=== PATIENT | male | born 1990 | race Caucasian/White ===

== ENCOUNTER → 2017-01-19 | Outpatient (CLI) | payer OTHER ==
--- NOTE | 2017-01-20 11:56 | REP ---
Right ankle series: Four views. History: Crush injury to the ankle. Findings: Four views right ankle demonstrate anterolateral soft-tissue swelling. No fracture or subluxation is seen. Impression: No fracture noted. Signed by Adams Loya MD 01/20/2017 12:31 P
== END ==
LOC: M WUC 19:26
PROVIDERS: ATTEND Physician Assistant
DX: S87.81XA Crushing injury of right lower leg, initial encounter (principal); Y92.89 Other specified places as the place of occurrence of the external cause; X58.XXXA Exposure to other specified factors, initial encounter

== ENCOUNTER → 2022-05-05 | Outpatient (CLI) | payer OTHER | LOC: M WUC 09:49 | PROVIDERS: ATTEND Physician Assistant Medical | DX: M47.817 Spondylosis without myelopathy or radiculopathy, lumbosacral region (principal) ==

== ENCOUNTER 2022-08-01 12:48 | Day surgery (SDC) | payer OTHER ==
[~2022-08-01] VITALS: Ht 193 cm; Wt 108.3 kg
[~2022-08-01 12:48] MED LIST: LEXA1TAB2 PO; NS 1,000 ML IV ONE; OMEP40CA5 PO
[2022-08-01] MEDS ORDERED: propofoL 200 MG/20 ML VIAL As Ordered ONE (14:24)
[2022-08-01] MEDS ORDERED: LIDOCAINE 2% 100MG/5ML SDV (FOR ANES.) As Ordered ONE (14:24)
[2022-08-01] MEDS ORDERED: fentaNYL 100 MCG/2 ML INJECTION As Ordered ONE (14:27)
[2022-08-01 15:03] VITALS: BP 137/74
== END 2022-08-01 15:12 | disposition home or self-care (01) ==
LOC: M OPP 12:48
PROVIDERS: ATTEND Internal Medicine Gastroenterology
DX: K22.89 Other specified disease of esophagus (principal); K21.9 Gastro-esophageal reflux disease without esophagitis; F41.9 Anxiety disorder, unspecified; Z79.899 Other long term (current) drug therapy
CPT/HCPCS: 43239; 87635; 88305; J3010